=== PATIENT | female | born 1945 | race Hispanic/Latino ===

== ENCOUNTER 2017-09-10 15:14 | Observation (INO) | payer MEDICARE ==
--- NOTE | 2017-09-10 15:45 | ED PDOC ---
Arrival/HPI - General Chief Complaint: High Blood Pressure Time Seen by Provider: 09/10/17 15:18 Historian: Patient - Critical Care Critical Care Minutes: 30 minutes - History of Present Illness Narrative History of Present Illness (Text): 09/10/17 15:42 72 yo female h/o HTN, HCL, Hypothyroidism, presents to the ED c/o change in mental status at 11am that lasted for a few seconds and then she developed left side head pressure. She describes the symptoms as feeling confused and not knowing where she was or when it was. Her symptoms soon resolved so she went to see Dr. Bonds who sent her to the ED. She currently does not have any symptoms. She denies any weakness or numbness. No visual complaints. She denies any fever , chills or bodyaches. PMD: Dr. Bonds Past Medical History - Provider Review Nursing Documentation Reviewed: Yes - Infectious Disease Hx of Infectious Diseases: None - Tetanus Immunization Tetanus Immunization: Unknown - Cardiac Hx Cardiac Disorders: Yes Hx Hypertension: Yes - Pulmonary Hx Respiratory Disorders: No - Neurological Hx Neurological Disorder: No - HEENT Hx HEENT Disorder: No - Renal Hx Renal Disorder: No - Endocrine/Metabolic Hx Endocrine Disorders: Yes Hx Hypothyroidism: Yes - Hematological/Oncological Hx Blood Disorders: No - Integumentary Hx Dermatological Disorder: No - Musculoskeletal/Rheumatological Hx Musculoskeletal Disorders: No - Gastrointestinal Hx Gastrointestinal Disorders: No - Genitourinary/Gynecological Hx Genitourinary Disorders: No - Psychiatric Hx Psychophysiologic Disorder: Yes Hx Anxiety: Yes Hx Substance Use: No - Surgical History Hx Hysterectomy: Yes (partial, cervix and uterus removed) Hx Orthopedic Surgery: Yes (left knee surgery, torn of miniscus) - Anesthesia Hx Anesthesia: Yes Hx Anesthesia Reactions: No Family/Social History - Physician Review Nursing Documentation Reviewed: Yes Family/Social History: No Known Family HX Smoking Status: Never Smoked Hx Alcohol Use: No Hx Substance Use: No Hx Substance Use Treatment: No Allergies/Home Meds Allergies/Adverse Reactions: Allergies No Known Allergies Allergy (Verified 09/10/17 15:20) Home Medications: Home Meds Medication Instructions Recorded Confirmed Amlodipine Besylate [Norvasc] 2.5 mg PO DAILY 05/11/13 09/10/17 Lansoprazole [Prevacid] 30 mg PO DAILY 05/11/13 09/10/17 Losartan/Hydrochlorothiazide 1 tab PO DAILY 05/11/13 09/10/17 [Hyzaar 25 mg-100 mg] Meclizine HCl [Meclizine HCl] 25 mg PO DAILY 05/11/13 09/10/17 Metoprolol Succinate [Toprol XL] 50 mg PO DAILY 05/11/13 09/10/17 Aspirin [Adult Aspirin Regimen] 81 mg PO MWF 09/10/17 09/10/17 Cholecalciferol (Vitamin D3) 1 tab PO DAILY 09/10/17 09/10/17 [Vitamin D3] Fluticasone/Salmeterol 100/50 1 puff IH DAILY 09/10/17 09/10/17 [Advair Diskus 100/50] Levothyroxine [Synthroid] 25 mcg PO DAILY 09/10/17 09/10/17 Review of Systems - Physician Review All systems were reviewed & negative as marked: Yes - Review of Systems Constitutional: Normal Eyes: Normal ENT: Normal Respiratory: Normal Cardiovascular: Normal Gastrointestinal: Normal Genitourinary Female: Normal Musculoskeletal: Normal Skin: Normal Neurological: Headache, Speech Changes, Other (confusion) Endocrine: Normal Hemo/Lymphatic: Normal Psychiatric: Normal Physical Exam Vital Signs Reviewed: Yes Vital Signs Temp Pulse Resp BP Pulse Ox 09/10/17 16:20 78 16 153/61 H 97 09/10/17 15:27 98.0 F 96 H 17 175/128 H 96 Temperature: Afebrile Blood Pressure: Hypertensive Pulse: Regular Respiratory Rate: Normal Appearance: Positive for: Well-Appearing, Non-Toxic, Comfortable Pain Distress: None Mental Status: Positive for: Alert and Oriented X 3 Finger Stick Blood Glucose: 101 - Systems Exam Head: Present: Atraumatic, Normocephalic Pupils: Present: PERRL Extroacular Muscles: Present: EOMI Conjunctiva: Present: Normal Mouth: Present: Moist Mucous Membranes Pharnyx: Present: Normal. No: ERYTHEMA Nose (Internal): Present: Normal Inspection Neck: Present: Normal Range of Motion. No: MIDLINE TENDERNESS, Bruit Respiratory/Chest: Present: Clear to Auscultation, Good Air Exchange. No: Respiratory Distress, Accessory Muscle Use Cardiovascular: Present: Regular Rate and Rhythm, Normal S1, S2. No: Murmurs Abdomen: Present: Normal Bowel Sounds. No: Tenderness, Distention, Peritoneal Signs Back: Present: Normal Inspection Upper Extremity: Present: Normal Inspection, Normal ROM, NORMAL PULSES, Neurovascularly Intact. No: Cyanosis, Edema Lower Extremity: Present: Normal Inspection, NORMAL PULSES, Normal ROM, Neurovascularly Intact. No: Edema Neurological: Present: GCS=15, CN II-XII Intact, Speech Normal, Motor Func Grossly Intact, Normal Sensory Function Skin: Present: Warm, Dry, Normal Color. No: Rashes Psychiatric: Present: Alert, Oriented x 3, Normal Insight, Normal Concentration Medical Decision Making ED Course and Treatment: 09/10/17 15:48 72 yo female h/o HTN, HCL, Hypothyroidism presents with c/o AMS and left sided headache -- Labs -- EKG, CXR, CT -- Finger stick reviewed -- Code stroke activated in triage. Case was discussed with Dr. Jose Antonio Cha who agrees that no tPA is indicated at this time secondary to rapid resolution of symptoms and time not with in the treatment of TPA 4.5hrs. CT results pending. 09/10/17 16:04 CT head is negative for acute stroke. CT reviewed with Dr. Pitts. Patient reevaluated after CT and exam is unchanged. Still not having symptoms. Neuro exam normal. No NFD. EKG: NSR at [address] elevations, TWI in III, aVF, no change 05/19/13 09/10/17 16:55 Patient's blood pressure improved to 153/61 without antihypertensives. Case discussed with Dr. Michelle who will accept the patient to her service for Dr. Bonds/Kurtis to remote telemetry for TIA, Hypertension. Patient explained in detail her results and plan for admission. She is with her sister at bedside and agrees to stay in the hospital for further evaluation of her stroke like symptoms. - Lab Interpretations Lab Results: 09/10/17 16:00 09/10/17 16:00 Lab Results 09/10/17 16:00: Blood Type Pending, Antibody Screen Pending, BBK History Checked No verified bt 09/10/17 16:00: Sodium 139, Potassium 3.6, Chloride 98, Carbon Dioxide 29, Anion Gap 16, BUN 18, Creatinine 0.7, Est GFR ( Amer) > 60, Est GFR (Non- Af Amer) > 60, Random Glucose 115 H, Calcium 9.9, Total Bilirubin 0.6, AST 22, ALT 27, Alkaline Phosphatase 79, Troponin I < 0.01, Total Protein 7.7, Albumin 4.4, Globulin 3.3, Albumin/Globulin Ratio 1.3, Triglycerides 119, Cholesterol 184, LDL Cholesterol Direct Pending, HDL Cholesterol 41 09/10/17 16:00: PT 11.4, INR 1.04, APTT 28.8 09/10/17 16:00: WBC 10.8, RBC 4.64, Hgb 13.6, Hct 41.0, MCV 88.4, MCH 29.3, MCHC 33.2, RDW 13.4, Plt Count 309, MPV 10.3, Gran % 79.9 H, Lymph % (Auto) 15.0 L, [place] % (Auto) 4.4, Eos % (Auto) 0.5 L, Baso % (Auto) 0.2, Gran # 8.60 H , Lymph # 1.6, [place] # 0.5, Eos # 0.1, Baso # 0.02 - RAD Interpretation Radiology Orders: 09/10/17 15:38 HEAD W/O (CODE STROKE) [CT] Stat 09/10/17 15:39 CHEST PORTABLE [RAD] Stat Comic Book Artist: Radiologist - EKG Interpretation Interpreted by ED Physician: Yes Type: 12 lead EKG Comparison: Similar to previous EKG - Medication Orders Current Medication Orders: Discontinued Medications Aspirin (Aspirin) 325 mg PO STAT STA Stop: 09/10/17 15:54 Last Admin: 09/10/17 15:55 Dose: 325 mg NIHSS Scale (Cullen) Time Performed: 15:18 - How Severe is the Stoke Baseline Level of Consciousness: 0=Alert LOC to Questions: 0=Both comments correct LOC to commands: 0=Obeys both correctly Best Gaze: 0=Normal Visual: 0=No visual loss Facial: 0=Normal Motor Arm - Left: 0=No drift Motor Arm - Right: 0=No drift Motor Leg - Left: 0=No drift Motor Leg - Right: 0=No drift Limb Ataxia: 0=Absent Sensory: 0=Normal Best Language: 0=No aphasia Dysarthia: 0=Normal articulation Extinction & Inattention (Neglect): 0=Normal, no object Score: 0 Risk Level: No Stroke Risk rTPA Inclusion/Exclusion - Refusal of Treatment Patient Refused Treatment: No - Inclusion Criteria for Altepase Patient is 18 years or Older: Yes The Clinical Diagnosis of Ischemic Stroke That is Causing a Potentially Disabling Neurological Deficit: Yes Time of Onset is Well Established to be Less Than 270 Minute Before Treatment Would Begin: No Risk/Benefit Discussed With Patient/Family Member Present: No - Exclusion Criteria for Altepase Uncontrolled Hypertension at Time of Treatment (Systolic BP above 185 or Diastolic BP above 110 mmHg): Yes - Warning to TPA With Conditions Following Conditions Weighed Against Anticipated Benefit: Yes Condition: Stroke Serevity Too Mild, Rapid Improvement Disposition/Present on Arrival - Present on Arrival Any Indicators Present on Arrival: No History of DVT/PE: No History of Uncontrolled Diabetes: No Urinary Catheter: No History of Decub. Ulcer: No History Surgical Site Infection Following: None - Disposition Have Diagnosis and Disposition been Completed?: Yes Diagnosis: TIA (transient ischemic attack) Disposition Time: 16:58 Patient Plan: Observation Condition: FAIR Forms: [employer] (Macedonian)
--- NOTE | 2017-09-10 15:55 | CT ---
PROCEDURE: CT HEAD WITHOUT CONTRAST. HISTORY: weakness COMPARISON: 05/11/2013 TECHNIQUE: Axial computed tomography images were obtained through the head/brain without intravenous contrast. Radiation dose: Total exam DLP = 898.95 mGy-cm. This CT exam was performed using one or more of the following dose reduction techniques: Automated exposure control, adjustment of the mA and/or kV according to patient size, and/or use of iterative reconstruction technique. FINDINGS: HEMORRHAGE: No intracranial hemorrhage. BRAIN: No mass effect or edema. Cortical atrophy, periventricular small vessel disease VENTRICLES: Unremarkable. No hydrocephalus. CALVARIUM: Unremarkable. PARANASAL SINUSES: Unremarkable as visualized. No significant inflammatory changes. MASTOID AIR CELLS: Unremarkable as visualized. No inflammatory changes. OTHER FINDINGS: None. IMPRESSION: No acute intracranial abnormalities. No significant findings to account for the clinical presentation. No significant interval change compared to the prior examination(s). Code stroke protocol: Study completed 15:43 Radiologist notified 15:42 Results conveyed verbally at 15:53 Interpretation finalized and available for review 15:54
[2017-09-10 16:08] LABS: BASO # 0.02 K/mm3 (0.0-2.0); BASO % 0.2 % (0.0-3.0); EOS # 0.1 (0.0-0.7); EOS % 0.5 % (1.5-5.0); GRAN # 8.6 (1.4-6.5); GRAN % 79.9 % (50.0-68.0); HEMOGLOBIN 13.6 g/dL (12.0-16.0); LYMPH # 1.6 (1.2-3.4); MEAN CELL VOLUME 88.4 fl (80.0-105.0); MEAN CORPUSCULAR HEMOGLOBIN 29.3 pg (25.0-35.0); MEAN CORPUSCULAR HGB CONC 33.2 g/dl (31.0-37.0); MEAN PLATELET VOLUME 10.3 fl (7.0-11.0); MONO # 0.5 (0.1-0.6); MONO % 4.4 % (1.0-6.0); RBC 4.64 10^6/uL (3.5-6.1); RED CELL DISTRIBUTION WIDTH 13.4 % (11.5-14.5); WHITE BLOOD COUNT 10.8 10^3/ul (4.5-11.0)
[2017-09-10 16:21] LABS: INR 1.04 (0.93-1.08); PARTIAL THROMBOPLASTIN TIME 28.8 Seconds (25.1-36.5); PROTHROMBIN TIME 11.4 SECONDS (9.4-12.5)
[2017-09-10 16:40] LABS: ALB/GLOB RATIO 1.3 (1.1-1.8); ALBUMIN 4.4 g/dL (3.0-4.8); ALT/SGPT 27 U/L (7-56); AST/SGOT 22 U/L (14-36); BLOOD UREA NITROGEN 18 mg/dL (7-21); CALCIUM 9.9 mg/dL (8.4-10.5); GFR AFRICAN-AMERICAN > 60; GFR NON-AFRICAN AMERICAN > 60; HDL CHOLESTEROL 41 mg/dL (29-60)
[2017-09-10 16:52] LABS: TROPONIN I < 0.01 ng/mL
[2017-09-10 17:01] LABS: LDL CHOLESTEROL 136 mg/dL (0-129)
[2017-09-10 19:52] VITALS: BMI 44.8
[2017-09-10] MEDS ORDERED: Influenza Vaccine 60 mcg/0.5 mL SYR (4YR UP) IM ONE (19:52)
[2017-09-10] MEDS ORDERED: Pneumococcal 23-Valent Vaccine IM ONE (19:52)
--- NOTE | 2017-09-10 20:28 | CARD ---
APPROVED REPORT EKG Measurement Heart [id number] VT 202P25 [id number] <Conclusion> Normal sinus rhythm Minimal voltage criteria for LVH, may be normal variant Inferior infarct, age undetermined Possible Anterior infarct, age undetermined Abnormal ECG
[2017-09-10 20:44] LABS: IRON 56 ug/dL (45-180)
[2017-09-10 20:53] LABS: % IRON SATURATION 13 % (20-55); TOTAL IRON BINDING CAPACITY 426 ug/dL (265-497)
[2017-09-11 07:22] LABS: BASO # 0.03 K/mm3 (0.0-2.0); BASO % 0.4 % (0.0-3.0); EOS # 0.2 (0.0-0.7); EOS % 1.9 % (1.5-5.0); GRAN # 5.33 (1.4-6.5); GRAN % 63.3 % (50.0-68.0); HEMOGLOBIN 13.1 g/dL (12.0-16.0); LYMPH # 2.2 (1.2-3.4); LYMPH % 25.8 % (22.0-35.0); MEAN CELL VOLUME 88.6 fl (80.0-105.0); MEAN CORPUSCULAR HEMOGLOBIN 28.7 pg (25.0-35.0); MEAN CORPUSCULAR HGB CONC 32.3 g/dl (31.0-37.0); MEAN PLATELET VOLUME 10.1 fl (7.0-11.0); MONO # 0.7 (0.1-0.6); MONO % 8.6 % (1.0-6.0); RBC 4.57 10^6/uL (3.5-6.1); RED CELL DISTRIBUTION WIDTH 13.4 % (11.5-14.5); WHITE BLOOD COUNT 8.4 10^3/ul (4.5-11.0)
[2017-09-11 07:30] LABS: ALB/GLOB RATIO 1.3 (1.1-1.8); ALBUMIN 4.2 g/dL (3.0-4.8); ALT/SGPT 28 U/L (7-56); AST/SGOT 21 U/L (14-36); BLOOD UREA NITROGEN 18 mg/dL (7-21); CALCIUM 9.8 mg/dL (8.4-10.5); GFR AFRICAN-AMERICAN > 60; GFR NON-AFRICAN AMERICAN > 60
[2017-09-11 08:18] VITALS: RESP 20
[2017-09-11] MEDS: Pantoprazole 40 mg EC Tab PO SCH (08:19)
[2017-09-11] MEDS: Levothyroxine 25 MCG TAB PO SCH (09:03)
[2017-09-11] MEDS: Metoprolol Succinate 50 mg XL Tab PO SCH (09:03)
[2017-09-11] MEDS ORDERED: Non Formulary Medication (Losartan/Hydrochlorothiazide [Hyzaar 100-25 Tablet] 1 TAB) PO SCH (10:00)
[2017-09-11] MEDS ORDERED: Levothyroxine 25 MCG TAB PO SCH (10:00)
[2017-09-11 11:22] LABS: FERRITIN 14.4 ng/mL
--- NOTE | 2017-09-11 14:33 | CON ---
DATE: 09/11/2017 NEUROLOGY CONSULTATION CHIEF COMPLAINT: Left-sided head pressure and change in mental status. HISTORY OF PRESENT ILLNESS: The patient is a 72-year-old woman with history of hypertension, hypercholesterolemia, and hypothyroidism presented to the hospital at 11 a.m. on 09/10/2017. She had change in mental status where she became confused and did not know where she was and what time of the day it was for few seconds and developed left-sided head pressure. She was found to have elevated systolic and diastolic blood pressures in the ER 175/128. She takes aspirin every other day. Currently, no focal weakness, no paresthesia in extremities. No change in sense,vision, taste, or smell. She is doing well, sitting at the edge of bed, moving all extremities. No pronator drift seen. CAT scan of the head show no acute intracranial abnormality. PAST MEDICAL HISTORY: History of hypertension, hypercholesterolemia, and hypothyroidism. REVIEW OF SYSTEMS: A 14-point review of systems is negative as mentioned in HPI. ALLERGIES: NO KNOWN DRUG ALLERGIES. MEDICATIONS: Reviewed by nurse per reconciliation sheet. PHYSICAL EXAMINATION: GENERAL: The patient sitting up in bed in no acute distress. VITAL SIGNS: Temperature 97.6, pulse 79, blood pressure 185/80, respirations 20, oxygen saturation 96% by room air. HEENT: Head is atraumatic and normocephalic. PERRLA. Extraocular muscles intact. NECK: Supple. No JVD. No adenopathy noted. LUNGS: Clear to auscultation. No adventitious sounds. HEART: S1 and S2. Normal rate and rhythm. No murmurs, rubs, or gallops. ABDOMEN: Soft, nontender and nondistended. Bowel sounds present. EXTREMITIES: No clubbing, no cyanosis. Peripheral pulses 2+ felt bilaterally. NEUROLOGIC: The patient is alert and oriented to person, place, month and year. Speech is fluent without any errors. Cranial nerves II through XII intact. Motor exam, moves all extremities equally. Toes are downgoing bilaterally. Sensory exam: Decreased light touch, pinprick, proprioception, vibration intact. DTRs are 2+ throughout. Coordination: [id number] intact. Gait is deferred for now. LABORATORY DATA: Sodium 139, potassium 4.3, chloride 99, carbon dioxide 29, BUN of 8, creatinine 0.79, and glucose of 109. ASSESSMENT AND PLAN: A 72-year-old woman with past medical history of hypertension, hypothyroidism, and hypercholesterolemia who came in with change in mental status in terms of the fact she did know where she was, which lasted for few seconds as well as left-sided pressure headache. Found to have elevated systolic and diastolic blood pressures of 175/128, now is much more stable. No focal weakness or paresthesia in extremities. She denies any headaches or change in sense,vision, taste, or smell at this time. Her CAT scan of the head show no acute intracranial abnormality, likely change in symptoms was secondary to transient hypertensive urgency causing transient muscle spasm, causing transient ischemic attack like symptoms such as transient global amnesia with left-sided head pressure. PLAN: At this time, recommend; 1. Aspirin 81 mg daily. 2. Lipitor 40 mg p.o. daily for dyslipidemia. 3. Low-fat healthy diet. 4. Keep blood pressure between 130s to 140s systolic and diastolic 70s to 80s. 5. MRI of the brain to assess for any acute infarction. If MRI of the brain is negative, then she can go home and followup as an outpatient. Bhaskar Cha MD
[2017-09-11] MEDS ORDERED: Gadodiamide 287 MG/ML VIAL (15ML) IV ONE (15:26)
--- NOTE | 2017-09-11 16:40 | MRI ---
PROCEDURE: MRI brain dated 09/11/2017 HISTORY: TIA COMPARISON: Comparison made with CT scan of the brain dated 09/10/2017 erma TECHNIQUE: Multiplanar, multisequence MR images of the brain were obtained with and without intravenous contrast enhancement. 15 cc Omniscan contrast material injected for this procedure. FINDINGS: HEMORRHAGE: No acute parenchymal, subarachnoid nor extra-axial hemorrhage. No evidence of hemosiderin deposition identified on gradient echo weighted sequence. DWI: No evidence of an acute or early subacute infarction seen on diffusion imaging. . BRAIN PARENCHYMA: Multiple nonenhancing focal areas of increased T2 signal seen scattered about the deep and subcortical white matter of both cerebral hemispheres as well as scattered throughout the basal nuclei and right cerebellum. There may also be a tiny focus of increased T2 signal in the left lateral cerebellar hemisphere is well. Changes are nonspecific though most likely represent chronic sequela of small vessel disease. Differential diagnosis would include sequela of old trauma, migraine headaches, post infectious/ inflammatory etiologies. Atypical presentation of a demyelinating disease process would be less likely in the absence of pertinent clinical history given this patient's age. None of these changes exhibit restricted diffusion. Minimal slightly confluent prolonged T2 signal changes are also seen in the periventricular white matter. No evidence of abnormal meningeal enhancement. Moderate generalized volume loss. ENHANCEMENT: As above. VENTRICLES: No obstructive hydrocephalus. CRANIUM: Calvarium appears grossly unremarkable. ORBITS: Orbits and contents appear grossly unremarkable. PARANASAL SINUSES/MASTOIDS: Paranasal sinuses are well-developed. Minor mucosal thickening within the ethmoid air complex extending superiorly into the inferior margin of the frontal sinus VASCULAR SYSTEM: Visualized major vascular flow voids at skull base are patent. OTHER FINDINGS: None . IMPRESSION: No acute intracranial hemorrhage or infarct. Findings most consistent with chronic white matter, basal nuclei and cerebellar ischemic changes as described. . See above discussion for differential diagnostic considerations. Moderate volume loss.
[2017-09-12] MEDS: Pantoprazole 40 mg EC Tab PO SCH (06:38)
[2017-09-12 07:59] VITALS: BP 114/66; TEMP 97.9; O2SAT 95
[2017-09-12] MEDS: Metoprolol Succinate 50 mg XL Tab PO SCH (10:04)
[2017-09-12] MEDS: Levothyroxine 25 MCG TAB PO SCH (10:05)
--- NOTE | 2017-09-12 11:18 | US ---
PROCEDURE: Bilateral carotid artery duplex ultrasound HISTORY: Carotid stenosis TIA PHYSICIAN(S): Berto Hanks MD. TECHNIQUE: Duplex sonography and color-flow Doppler were used to evaluate the carotid bifurcations and limited segments of the vertebral arteries bilaterally. FINDINGS: There is mild smooth heterogeneous plaque noted at the carotid bifurcations bilaterally. The peak systolic velocity in the proximal right internal carotid artery is 101 cm/sec. This corresponds to a 20 to 39% proximal right ICA stenosis. Normal systolic velocities are noted in the proximal right external carotid artery. There is antegrade flow in the right vertebral artery. The peak systolic velocity in the proximal left internal carotid artery is 90 cm/sec. This corresponds to a 20 to 39% proximal left ICA stenosis. Normal systolic velocities are noted in the proximal left external carotid artery. There is antegrade flow in the left vertebral artery. IMPRESSION: 1. Bilateral 20-39% proximal ICA stenoses. 2. Antegrade flow in both vertebral arteries.
--- NOTE | 2017-09-12 13:11 | PN ---
DATE: 09/12/2017 NEUROLOGY FOLLOWUP CHIEF COMPLAINT: Followup for left-sided head pressure and change in mental status. SUBJECTIVE: The patient is seen and examined at the bedside. MRI of the brain showed no acute intracranial abnormality. Carotid Doppler showed 20% to 39% proximal ICA stenosis, antegrade flow to vertebral arteries. Currently, the blood pressure is stable. The patient is doing much better. No acute issues overnight. PAST MEDICAL HISTORY: Hypertension, hypercholesterolemia, and hypothyroidism. REVIEW OF SYSTEMS: A 14-point of review is negative except as in HPI. ALLERGIES: NO KNOWN DRUG ALLERGIES. SOCIAL HISTORY: No illicit drug use, smoking or ETOH abuse. MEDICATIONS: Reviewed by nurse's reconciliation sheet. PHYSICAL EXAMINATION: GENERAL: The patient is seen up in bed, in no acute distress. VITAL SIGNS: Temperature 97.9, pulse 87, blood pressure 114/66, respirations 20, and oxygen saturation 95% on room air. HEENT: Atraumatic and normocephalic. PERRLA. Extraocular muscles intact. NECK: Supple. No JVD. No adenopathy noted. LUNGS: Clear to auscultation. No adventitious sounds. HEART: S1 and S2. Normal rate and rhythm. No murmurs, rubs or gallops. ABDOMEN: Soft, nontender, and nondistended. Bowel sounds are present. EXTREMITIES: No clubbing. No cyanosis. Peripheral pulses are 2+ felt bilaterally. NEUROLOGIC: The patient is alert and oriented to person, place, month and year. Speech is fluent without errors. Cranial nerves II through XII intact. Motor exam: Moves all extremities equally. Toes are downgoing bilaterally. Sensory exam: Light touch, pinprick, proprioception, and vibration intact. DTRs are 2+ throughout. Coordination of finger to nose intact. Gait is deferred for now. LABORATORY DATA: MRI of the brain showed no acute intracranial abnormality. ASSESSMENT AND PLAN: This is a 72-year-old woman with past medical history of hypertension, hypothyroidism, and hypercholesterolemia, who came in with change in mental status in terms of the fact that she did not know where she was, which lasted for few seconds, had left-sided pressure headache and found to have elevated systolic and diastolic blood pressure of 175/128 mmHg, which is now more controlled and stabilized. No focal weakness and paresthesia in the extremities. MRI of the brain showed no acute intracranial abnormality. Carotid Doppler showed 20% to 39% proximal ICA stenosis with antegrade flow to the vertebral arteries. At this time, her symptoms are secondary to transient hypertensive urgency causing transient vasospasm with TIA like symptoms. At this time, I recommend aspirin 81 mg p.o. daily and Lipitor 40 mg p.o. daily for dyslipidemia and keep blood pressure between 120s to 130s mmHg and once she is clinically stable for discharge. Bhaskar Cha MD
[2017-09-12 14:25] VITALS: PULSE 87
--- NOTE | 2017-09-14 11:01 | RAD ---
HISTORY: r/o cva COMPARISON: 05/19/2013 FINDINGS: LUNGS: The lungs are clear. PLEURA: No significant pleural effusion identified, no pneumothorax apparent. CARDIOVASCULAR: Normal. OSSEOUS STRUCTURES: No significant abnormalities. VISUALIZED UPPER ABDOMEN: Normal. OTHER FINDINGS: None. IMPRESSION: No active pulmonary disease.
== END 2017-09-12 14:27 | disposition home or self-care (01) ==
LOC: ED 15:14 → ERH 16:53 → 3RNO 17:53
PROVIDERS: ADMIT Internal Medicine Medical Oncology; ATTEND Internal Medicine Medical Oncology
DX: I16.0 Hypertensive urgency (principal); I65.23 Occlusion and stenosis of bilateral carotid arteries; I10 Essential (primary) hypertension; R41.82 Altered mental status, unspecified; R51 Headache; E78.00 Pure hypercholesterolemia, unspecified; E03.9 Hypothyroidism, unspecified; Z79.82 Long term (current) use of aspirin
CPT/HCPCS: 36415; 70450; 70553; 71010; 80053; 80061; 82607; 82728; 83036; 83540; 83550; 84484; 85025; 85610; 85730; 86850; 86900; 93005; 93880; 99285; A9579; G0378

== ENCOUNTER 2017-11-26 10:28 | Day surgery (SDC) | payer MEDICARE ==
[2017-11-17 13:26] VITALS: BMI 44.2
[2017-11-26] MEDS ORDERED: Propofol 10 mg/ml Inj (20 ML) ONE ×2 (11:41→12:23)
[2017-11-26] MEDS ORDERED: Sodium Chloride 0.9% 1,000 ML IV SCH (13:30)
[2017-11-26 15:27] VITALS: BP 146/88; PULSE 72; RESP 14; TEMP 97.5; O2SAT 98
== END 2017-11-26 14:40 | disposition home or self-care (01) ==
LOC: ENDO 10:28
PROVIDERS: ATTEND Internal Medicine Gastroenterology
DX: D50.9 Iron deficiency anemia, unspecified (principal); K63.3 Ulcer of intestine; K57.30 Diverticulosis of large intestine without perforation or abscess without bleeding; K21.9 Gastro-esophageal reflux disease without esophagitis; K64.8 Other hemorrhoids; I10 Essential (primary) hypertension; E78.5 Hyperlipidemia, unspecified
CPT/HCPCS: 45380; 88305; J2001; J2704; J7040 ×2

== ENCOUNTER 2018-01-14 08:41 | Day surgery (SDC) | payer MEDICARE ==
[2017-11-17 13:26] VITALS: BMI 44.2
[2018-01-14] MEDS ORDERED: Etomidate 20 mg/10ml Inj IV ONE (11:28)
[2018-01-14] MEDS ORDERED: Lactated Ringer's 1,000 ML IV SCH (11:30)
[2018-01-14 14:35] VITALS: BP 144/74; PULSE 81; RESP 18; TEMP 97.8; O2SAT 97
== END 2018-01-14 14:35 | disposition home or self-care (01) ==
LOC: ENDO 08:41
PROVIDERS: ATTEND Internal Medicine Gastroenterology
DX: K25.9 Gastric ulcer, unspecified as acute or chronic, without hemorrhage or perforation (principal); K31.7 Polyp of stomach and duodenum; K29.50 Unspecified chronic gastritis without bleeding; K44.9 Diaphragmatic hernia without obstruction or gangrene; D50.9 Iron deficiency anemia, unspecified
CPT/HCPCS: 43239; 88305; 88342; J7040; J7120